=== PATIENT | female | born 1955 | race Caucasian/White ===

== ENCOUNTER 2018-10-31 17:33 | Emergency (ER) | payer OTHER ==
[~2018-10-31] VITALS: Wt 118.2 kg
--- NOTE | 2018-10-31 22:16 | ERD ---
ER Documentation Chief Complaint Chief Complaint sent by clinic c/o dizziness HPI The patient is a 63-year-old female, presenting to the ER because of intermittent dizziness for the last 6 months, worse when she laid down, syncope, near syncope, seizure, headache, neck pain, chest pain, dyspnea, abdominal pain, vomiting, dysuria. She feels as if the room is spinning when she had the symptoms. She was at radiology for carotid ultrasound ordered by her neuro psych sales specialist around 2 PM today when she felt dizzy. She was therefore advised to go to the ER for evaluation. She feels much better at this time, does not smoke, drinks socially, has a lot of stress in her life. She works as a caregiver Past medical history: Hypertension, insomnia Past surgical history: Hysterectomy ROS All systems reviewed and are negative except as per history of present illness. Medications Home Meds Active Scripts Meclizine Hcl* (Antivert*) 12.5 Mg Tab, 25 MG PO Q6H PRN for DIZZINESS, #20 TAB Prov:MAT CALHOUN MD 10/31/18 Carbamide Peroxide* (Debrox*) 6.5% - 15 Ml Drops, 10 DROP RIGHT EAR BID for 7 Days, BOTTLE Prov:MAT CALHOUN MD 10/31/18 Allergies Allergies: Coded Allergies: No Known Allergy (Unverified , 10/31/18) Physical Exam Vitals Vital Signs Date Temp Pulse Resp B/P (MAP) Pulse Ox O2 O2 Flow FiO2 Time Delivery Rate 10/31/18 97.7 60 20 172/77 99 18:06 (108) Physical Exam Const: No acute distress. Head: Atraumatic. Eyes: Normal Conjunctiva. ENT: Normal External Ears, Nose and Mouth. Left tympanic membrane is within normal limits, right tympanic membrane is obscured with moderate amount of cerumens Neck: Full range of motion. No meningismus. Resp: Clear to auscultation bilaterally. Cardio: Regular tachycardic Abd: Soft, non distended, normal bowel sounds, non tender. Skin: No petechiae or rashes. Back: No midline or flank tenderness. Ext: No cyanosis, or edema. Neur: Awake and alert. No focal deficit Psych: Normal Mood and Affect. Result Diagram: 10/31/18220310/31/182203 Results 24 hrs Laboratory Tests Test 10/31/18 22:04 White Blood Count 8.6 10^3/ul Red Blood Count 5.42 10^6/ul Hemoglobin 15.0 g/dl Hematocrit 46.2 % Mean Corpuscular Volume 85.2 fl Mean Corpuscular Hemoglobin 27.7 pg Mean Corpuscular Hemoglobin Concent 32.5 g/dl Red Cell Distribution Width 12.4 % Platelet Count 227 10^3/UL Mean Platelet Volume 10.8 fl Immature Granulocytes % 0.600 % Neutrophils % 73.9 % Lymphocytes % 19.7 % Monocytes % 4.8 % Eosinophils % 0.2 % Basophils % 0.8 % Nucleated Red Blood Cells % 0.0 /100WBC Immature Granulocytes # 0.050 10^3/ul Neutrophils # 6.3 10^3/ul Lymphocytes # 1.7 10^3/ul Monocytes # 0.4 10^3/ul Eosinophils # 0.0 10^3/ul Basophils # 0.1 10^3/ul Nucleated Red Blood Cells # 0.0 10^3/ul Prothrombin Time 11.9 Sec Prothrombin Time Ratio 0.9 INR International Normalized Ratio 0.87 Activated Partial Thromboplast Time 27.5 Sec Sodium Level 140 mmol/L Potassium Level 3.8 mmol/L Chloride Level 98 mmol/L Carbon Dioxide Level 32 mmol/L Anion Gap 10 Blood Urea Nitrogen 14 mg/dl Creatinine 0.76 mg/dl Est Glomerular Filtrat Rate mL/min > 60 mL/min Glucose Level 121 mg/dl Calcium Level 9.5 mg/dl Current Medications Medications Dose Sig/Marisa Start Time Status Last (Trade) Ordered Route PRN Stop Time Admin Dose Reason Admin Meclizine 25 mg ONCE ONCE 10/31/18 DC 10/31/18 HCl PO 23:00 22:43 (Antivert) 10/31/18 23:01 Procedures/MDM EKG: Read by emergency physician Rate/Rhythm: Sinus bradycardia 56 beats/min QRS, ST, T-waves: No ST elevation, no T inversion, LAE, nonspecific ST and T abnormality Impression: Abnormal EKG [place] [id number] Radiology Main Line: [phone] DIAGNOSTIC IMAGING REPORT Patient: JOSE ANGEL SAWYER : 1955 Age: 63 Sex: F MR #: [id number] DOS: 10/31/18 2232 Ordering MD: MAT CALHOUN MD Location: E/R Room/Bed: PROCEDURE: CT Brain without contrast. CLINICAL INDICATION: Headache TECHNIQUE: A CT of the brain was performed on a multidetector CT scanner utilizing axial imaging from the skull base through the vertex without IV c ontrast. Multiplanar reformatted images were made. Images were reviewed on a PACS workstation. The CTDIvol is 40 mGy and the DLP is 634 mGycm. DICOM images are available. One or more of the following dose reduction techniques were utilized: 1.) Automated exposure control 2.) Adjustment of the mA +/- kV according to patient's size 3.) Use of iterative reconstruction technique. COMPARISON: None FINDINGS: There is no intracranial hemorrhage, mass effect, or midline shift. No extra-ax ial fluid collection is seen. The ventricles and sulci are normal in size and configuration. The density of the brain is normal, and the ramsey white matter differentiation appears well-preserved. The visualized paranasal sinuses and osseous structures are grossly unremarkable. IMPRESSION: 1. No evidence of acute intracranial pathology. 2. The brain is normal in appearance. .Aldo Ruano MD, MD Date Time Electronically viewed and signed by .Aldo Ruano MD, MD on 10/31/2018 23:20 .A/ CC: MAT CALHOUN MD [id number] MEDICAL MAKING DECISION: The patient is a 73-year-old female, presenting with acute dizziness of unclear etiology, suspected the symptoms from right ear cerumen impaction/insomnia/vertigo. She was treated with Antivert 25 mg p.o. for dizziness with good response, is stable for outpatient follow-up The differential diagnoses considered include but are not limited to central causes such as cerebellar infarct, cerebellar hemorrhage, cerebellar tumor, acoustic neuroma, peripheral causes such as benign positional vertigo, labyrinthitis, medication, Meniere's disease. Departure Diagnosis: Primary Impression: Dizziness Additional Impression: Excess wax in ear Condition: Good Comments She was discharged with Debrox and Antivert I discussed the findings with the patient. I advised the patient to follow-up with the primary physician in about 2-3 days, sooner if needed and return if any concern. Disclaimer: Inadvertent spelling and grammatical errors are likely due to EHR/dictation software use and do not reflect on the overall quality of patient care. Also, please note that the electronic time recorded on this note does not necessarily reflect the actual time of the patient encounter. MAT CALHOUN MD Oct 31, 2018 22:16
[2018-10-31] MEDS ORDERED: MECLIZINE 12.5 MG TAB PO ONE (23:00)
[2018-10-31] MEDS ORDERED: CARB15DR50 RIGHT EAR (23:42)
[2018-10-31] MEDS ORDERED: MECL12.574 PO (23:43)
[2018-10-31 23:46] VITALS: BP 157/73; PULSE 57; RESP 19
== END 2018-11-01 00:03 | disposition home or self-care (01) ==
LOC: E/R 17:33
DX: H61.21 Impacted cerumen, right ear (principal); I10 Essential (primary) hypertension; R40.2412 Glasgow coma scale score 13-15, at arrival to emergency department; R40.2142 Coma scale, eyes open, spontaneous, at arrival to emergency department; R40.2362 Coma scale, best motor response, obeys commands, at arrival to emergency department; R40.2252 Coma scale, best verbal response, oriented, at arrival to emergency department
CPT/HCPCS: 36415; 70450; 80048; 85025; 85610; 85730; 93005